=== PATIENT | female | born 1955 | race Caucasian/White ===

== ENCOUNTER 2016-07-25 22:59 | Emergency (ER) | payer MEDICARE, BC ==
--- NOTE | ~2016-07-25 | EKG ---
PATIENT: LIGIA MATOS UNIT #: [id number] Ventricular Rate: 108 BPM Atrial Rate: 108 BPM P-R Interval: 124 ms QRS Duration: 70 ms Q-T Interval: 370 ms QTC Calculation(Bezet): 495 ms P [place]: 58 degrees Calculated R [place]: 48 degrees Calculated T [place]: 5 degrees Diagnosis Line: Sinus tachycardia Diagnosis Line: Nonspecific T wave abnormality Inferior leads Diagnosis Line: Lateral leads Diagnosis Line: Abnormal ECG Diagnosis Line: No previous ECGs available Diagnosis Line: Confirmed by SHU CHURCHILL MD ([id number]) on 07/28/2016 Diagnosis Line: 9:38:41 AM INTERPRETING MD: ZHAO TRAYLOR
--- NOTE | ~2016-07-25 | CR72 ---
[facility]. [facility] A Service of [facility] RADIOLOGY TEXT RESULTS PATIENT: LIGIA MATOS LOCATION: SED : 57 UNIT #: [id number] AGE: [address]: Malachi Downs MD SEX: F ORDER DR: [id number] [address] [address] [id number] MR#: [id number] Acc #: [id number] NAME: LIGIA MATOS : 1955 SEX: F STUDY DATE/TIME: 07/25/2016 22:54 UNIT: SED ROOM: STUDY DESCRIPTION: CR Chest Single View Portable Attending Physician: Malachi Downs M.D. Ordering Physician: Malachi Downs M.D. Primary Care Physician: Primary Care Physician No MEDICAL IMAGING REPORT This report is preliminary unless electronic signature is present. EXAM Portable chest HISTORY Cough, congestion, shortness of air times several months. FINDINGS Portable view of the chest demonstrates coarse parenchymal markings mid and lower lung zone suggesting underlying interstitial disease fibrosis. No acute airspace disease or consolidation. No effusions. Heart, mediastinum unremarkable. No pneumothorax. Dictated by... Angelita Saucedo M.D. THIS IS AN ELECTRONICALLY VERIFIED REPORT Angelita Saucedo M.D. at 07/26/2016 10:00 PM Kristy TD: 07/26/2016 09:07 JOB #: [id number] MEDICAL IMAGING REPORT Page 1 of 1
[~2016-07-25 22:59] MED LIST: NO MEDICATIONS
[2016-07-25 23:02] LABS: BASOPHIL# 0.1 X10e3 (0-0.3); BASOPHIL% 0.5 % (0-2.5); HEMATOCRIT 38.9 % (35.0-45.0); HEMOGLOBIN 13.2 gm/dL (12.0-16.0); LYMPHOCYTE# 1.9 X10e3 (1.0-3.5); LYMPHOCYTE% 8.9 % (17.0-45.0); MEAN CELL VOLUME 87.2 FL (83-96); MEAN CORPUSCULAR HEMOGLOBIN 29.6 PG (28-34); MEAN CORPUSCULAR HGB CONC 33.9 g/dL (30-36); MEAN PLATELET VOLUME 7.9 FL (6.5-11.5); MONOCYTE# 1.5 X10e3 (0-1.0); MONOCYTE% 7.3 % (3.0-12.0); NEUTROPHIL# 17.5 X10e3 (1.5-7.1); NEUTROPHIL% 83.3 % (40-75); PLATELET COUNT 286 X10e3 (140-420); RED BLOOD COUNT 4.46 X10e (3.90-5.30); RED CELL DISTRIBUTION WIDTH 13.1 % (11.0-15.5)
[2016-07-25 23:07] LABS: DIFF IND YES
[2016-07-25 23:11] LABS: INFLUENZA A NEG (NEG); INFLUENZA B NEG (NEG)
[2016-07-25 23:13] LABS: INR 1.5; PROTHROMBIN TIME (PATIENT) 16.8 SECONDS (9.5-12.4)
[2016-07-25 23:13] LABS: ARTERIAL BLD GAS O2 SATURATION 92.4 % (90.0-100.0); ARTERIAL BLOOD GAS CARBOXY HB 4.5 %sat (0.0-9.0)
[2016-07-25 23:14] LABS: ARTERIAL BLOOD GAS ALLEN TEST NORMAL; ARTERIAL BLOOD GAS ART SITE RIGHT RADIAL; ARTERIAL DRAW? YES
[2016-07-25 23:16] LABS: POC - TROPONIN <0.05 ng/mL (<=0.05)
[2016-07-25 23:20] LABS: PARTIAL THROMBOPLASTIN TIME 26.9 SECONDS (25.6-38.1); PLATELET ESTIMATE NORMAL (NORMAL)
[2016-07-25 23:21] LABS: RBC NORMAL YES
[2016-07-25 23:22] LABS: ALBUMIN SERUM 3.1 g/dL (3.5-5.0); BILIRUBIN, DIRECT 0.3 mg/dL (0.0-0.2); BILIRUBIN,INDIRECT 0.6 mg/dL (0.0-0.9); BILIRUBIN,TOTAL 0.9 mg/dL (0.2-2.0); BUN/CREATININE RATIO 21.42; CALCIUM SERUM 8.8 mg/dL (8.4-10.2); CREATININE SERUM 0.7 mg/dL (0.6-1.4); GLOM FILT RATE Estimated 94.2 mL/min (>60); POTASSIUM 3.6 mmol/L (3.5-5.1); PROTEIN TOTAL SERUM 7.5 g/dL (6.0-8.3)
[2016-07-25 23:45] LABS: URINE SOURCE CLEAN CATCH
[2016-07-25 23:48] LABS: URINE APPEARANCE HAZY; URINE BLOOD 1+ (NEG); URINE COLOR DK YELLOW; URINE GLUCOSE NEG (NORM); URINE LEUKOCYTE ESTERASE 2+ (NEG); URINE NITRATE NEG (NEG); URINE PH 5.5 (5-8); URINE PROTEIN 1+ (NEG); URINE SPECIFIC GRAVITY >=1.030 (1.003-1.035); URINE UROBILINOGEN >=8.0 MG/DL (NORM)
[2016-07-25 23:53] LABS: MICRO INDICATED? YES; URINE BILIRUBIN NEG (NEG); URINE KETONE 2+ (NEG)
[2016-07-25 23:55] LABS: CULTURE INDICATED? YES; URINE BACTERIA 1+ (NEG); URINE SQUAMOUS EPITHELIAL CELL OCCAS /[HPF]; URINE TRANSITIONAL EPI CELLS OCCAS /[HPF]; URINE WBC 25-50 /[HPF] (0-5)
[2016-07-25 23:56] LABS: URINE MUCUS PRESENT
== END 2016-07-26 03:56 ==
LOC: SED 22:59
PROVIDERS: Emergency Medicine
DX: J44.1 Chronic obstructive pulmonary disease with (acute) exacerbation (principal); N39.0 Urinary tract infection, site not specified; F17.200 Nicotine dependence, unspecified, uncomplicated
CPT/HCPCS: 36600; 71010; 80048; 80076; 81003; 82553; 82803; 83605; 84484; 85025; 85610; 85730; 87040; 87086; 87804; 93005; 96361; 96365; 96375; 99285; J0456; J0696; J2930